=== PATIENT | female | born 1950 | race Caucasian/White ===

== ENCOUNTER → 2017-09-16 | Outpatient (CLI) | payer OTHER ==
[~2017-09-16] MED LIST: ASPIRIN81 M1 PO; TRAMADOL HCL50 MG PO; VOLTAREN50 M1 PO; [UNRECOGNIZED DRUG - REMARK]; [UNRECOGNIZED DRUG - REMARK]
== END | disposition home or self-care (01) ==
LOC: MAMMO 07:40
DX: Z12.31 Encounter for screening mammogram for malignant neoplasm of breast (principal)

== ENCOUNTER → 2017-10-20 | Outpatient (CLI) | payer MEDICARE ==
[2017-10-20 08:35] LABS: CREATININE 1.07 mg/dL (0.55-1.02)
== END | disposition home or self-care (01) ==
LOC: LAB 07:43
PROVIDERS: Surgery
DX: K43.9 Ventral hernia without obstruction or gangrene (principal); R10.9 Unspecified abdominal pain

== ENCOUNTER → 2017-10-22 | Outpatient (CLI) | payer MEDICARE | END | disposition home or self-care (01) | LOC: CT 01:54 | DX: K43.9 Ventral hernia without obstruction or gangrene (principal); K57.30 Diverticulosis of large intestine without perforation or abscess without bleeding; Z90.49 Acquired absence of other specified parts of digestive tract ==

== ENCOUNTER → 2017-10-29 | Outpatient (CLI) | payer MEDICARE | END | disposition home or self-care (01) | LOC: CT 08:29 | DX: K76.0 Fatty (change of) liver, not elsewhere classified (principal); R91.1 Solitary pulmonary nodule ==

== ENCOUNTER → 2017-11-12 | Outpatient (CLI) | payer MEDICARE ==
[~2017-11-12] MED LIST changes: +CLARITIN10 MG PO; +D3-20002000 UNIT PO; +HYDROCHLOROTH12.5 M3 PO; +SYNTHROID,LEV125 MCG PO
[2017-11-12 11:34] LABS: BILIRUBIN NEGATIVE (NEGATIVE); BLOOD NEGATIVE (NEGATIVE); CLARITY SL CLOUDY (CLEAR); COLOR YELLOW (YELLOW); GLUCOSE 1+ (NEGATIVE); KETONE NEGATIVE (NEGATIVE); LEUKO ESTERASE TRACE (NEGATIVE); NITRITE NEGATIVE (NEGATIVE); UROBILINOGEN 0.2 E.U./dl (0.2-1.0)
[2017-11-12 11:37] LABS: BASO # 0.1 10*3/uL (0.0-0.1); BASO % 1.4 % (0.0-1.0); EOS # 0.2 10*3/uL (0.0-0.4); EOS % 2.5 % (1.0-4.0); HEMATOCRIT 48.6 % (37.0-47.0); HEMOGLOBIN 15.8 g/dl (12.0-16.0); LYMPH # 1.2 10*3/uL (1.3-4.4); LYMPH % 15.6 % (27.0-41.0); MEAN CELL VOLUME 90.2 fl (81.0-99.0); MEAN CORPUSCULAR HGB 29.3 pg (27.0-31.0); MEAN CORPUSCULAR HGB CONC 32.5 g/dl (33.0-37.0); MEAN PLATELET VOLUME 10.4 fl (9.6-12.3); MONO # 0.5 10*3/uL (0.1-1.0); MONO % 7.1 % (3.0-9.0); NEUT # 5.6 10*3/uL (2.3-7.9); NEUT % 72.9 % (47.0-73.0); PLATELET COUNT AUTOMATED 199 10*3/uL (130-400); RED BLOOD COUNT 5.39 10*6/uL (4.10-5.10); WHITE BLOOD COUNT 7.6 10*3/uL (4.8-10.8)
[2017-11-12 11:43] LABS: BACTERIA TRACE; EPITHELIAL CELLS 25-30
[2017-11-12 12:00] LABS: BUN 16 mg/dl (7-24); CHLORIDE 103 mmol/L (98-107); CREATININE 1.01 mg/dL (0.55-1.02); POTASSIUM 3.8 mmol/L (3.5-5.1); SODIUM 143 mmol/L (136-145)
[2017-11-12 12:03] LABS: ACT PARTIAL THROMBO TIME 21.4 SECONDS (20.8-31.5)
== END | disposition home or self-care (01) ==
LOC: LAB 09:23
PROVIDERS: Surgery
DX: K43.9 Ventral hernia without obstruction or gangrene (principal); Z79.01 Long term (current) use of anticoagulants

== ENCOUNTER → 2017-11-18 | Day surgery (SDC) | payer MEDICARE ==
[~2017-11-18] VITALS: Ht 162.5 cm; Wt 94.8 kg
[~2017-11-18] MED LIST changes: +NORCO 5-325 TA1 EACH PO
--- NOTE | ~2017-11-18 | O ---
[place], [place] OPERATIVE NOTE NAME: BEST DIAZ UNIT #: [id number] ROOM: DOCTOR: JUSTYN LIZARRAGA MD BIRTHDATE: [birth year] DOS: 11/18/2017 PREOPERATIVE DIAGNOSIS: Ventral hernia. POSTOPERATIVE DIAGNOSIS: Ventral hernia. PROCEDURE: Repair of ventral hernia with mesh (medium Ventralex ST). SURGEON: Justyn Lizarraga MD PROFESSIONAL FIGHTER: CHRISTINE. ANESTHESIA: General with endotracheal intubation. INDICATIONS: This is a 67-year-old lady who comes in today for a symptomatic ventral/epigastric hernia. The procedure and its complications were explained to the patient in detail preoperatively. Complications that were discussed included but were not limited to bleeding, infection, hematoma/seroma/abscess formation, prolonged postoperative pain, damage to lying vital structures and recurrence. She agreed to proceed. DESCRIPTION OF PROCEDURE: After identifying the patient, the patient was brought to the operating suite and laid in the supine position. After induction of general anesthesia, timeout procedure was called and the parts were then painted and draped in the usual sterile fashion. An incision was made right above the area of the hernia. The skin and the subcutaneous tissue were incised. The hernial sac was identified and the defect was identified as well. The defect was approximately 1-1.5 cm in diameter. The hernial sac itself was reduced back into the abdominal cavity and at this point, a medium size Ventralex mesh was brought in and placed under the fascia above the peritoneum. The mesh was then fixed to the fascia with the help of Prolene sutures. The defect itself was then approximated with the help of interrupted #1 Prolene. Thereafter, the subcutaneous tissue was irrigated and approximated with the help of 3-0 Vicryl in a running fashion and the skin edges approximated with the help of 4-0 Vicryl in a subcuticular running fashion after the edges were infiltrated with 1% plain lidocaine. Dressing was placed. An abdominal binder was placed as well. The patient was extubated uneventfully and brought back to the recovery room in stable fashion. There were no complications. Dr. Justyn Lizarraga, the attending surgeon, was present throughout the operating case. [place], [place] OPERATIVE NOTE NAME: BEST DIAZ UNIT #: [id number] ROOM: DOCTOR: JUSTYN LIZARRAGA MD BIRTHDATE: [birth year] Justyn Lizarraga MD CM:OPRECORD:OPERATIVE NOTE [id number] JUSTYN LIZARRAGA MD 11/18/17 1000 interface
[2017-11-18 07:13] VITALS: BP 170/88
[2017-11-18 08:13] VITALS: BP 147/83
[2017-11-18 08:28] VITALS: BP 146/74
[2017-11-18 08:43] VITALS: BP 128/72
[2017-11-18 08:58] VITALS: BP 119/67
[2017-11-18 09:13] VITALS: BP 130/67
== END | disposition home or self-care (01) ==
LOC: SDC 11-12 10:15
DX: K43.9 Ventral hernia without obstruction or gangrene (principal); Z87.891 Personal history of nicotine dependence; I10 Essential (primary) hypertension; E78.5 Hyperlipidemia, unspecified; Z98.51 Tubal ligation status; Z90.49 Acquired absence of other specified parts of digestive tract; E03.9 Hypothyroidism, unspecified; M19.90 Unspecified osteoarthritis, unspecified site; Z88.8 Allergy status to other drugs, medicaments and biological substances

== ENCOUNTER 2018-01-11 16:34 | Emergency (ER) | payer MEDICARE ==
[~2018-01-11] VITALS: Ht 162.5 cm; Wt 92.1 kg
== END 2018-01-11 18:45 | disposition home or self-care (01) ==
LOC: ED 16:34
DX: S86.912A Strain of unspecified muscle(s) and tendon(s) at lower leg level, left leg, initial encounter (principal); S60.222A Contusion of left hand, initial encounter; Z88.2 Allergy status to sulfonamides; Z88.6 Allergy status to analgesic agent; Z88.8 Allergy status to other drugs, medicaments and biological substances; Z79.899 Other long term (current) drug therapy; Z79.82 Long term (current) use of aspirin; W18.09XA Striking against other object with subsequent fall, initial encounter; Y93.89 Activity, other specified; Y92.89 Other specified places as the place of occurrence of the external cause; Y99.8 Other external cause status

== ENCOUNTER → 2018-01-18 | Outpatient (CLI) | payer MEDICARE ==
[~2018-01-18] MED LIST changes: +OMEPRAZOLE D/R20 MG PO; +PRAVASTATIN SOD80 MG PO
[2018-01-18 08:45] LABS: BASO # 0.1 10*3/uL (0.0-0.1); BASO % 1.1 % (0.0-1.0); EOS # 0.2 10*3/uL (0.0-0.4); EOS % 2.7 % (1.0-4.0); HEMATOCRIT 47.1 % (37.0-47.0); HEMOGLOBIN 15.3 g/dl (12.0-16.0); LYMPH # 1.2 10*3/uL (1.3-4.4); LYMPH % 17.3 % (27.0-41.0); MEAN CORPUSCULAR HGB 28.9 pg (27.0-31.0); MEAN CORPUSCULAR HGB CONC 32.5 g/dl (33.0-37.0); MEAN PLATELET VOLUME 10.6 fl (9.6-12.3); MONO # 0.5 10*3/uL (0.1-1.0); MONO % 7.5 % (3.0-9.0); NEUT % 71.1 % (47.0-73.0); PLATELET COUNT AUTOMATED 210 10*3/uL (130-400); RED BLOOD COUNT 5.29 10*6/uL (4.10-5.10); RED CELL DISTRI WIDTH 13.2 % (0-14.5); WHITE BLOOD COUNT 7.1 10*3/uL (4.8-10.8)
[2018-01-18 09:13] LABS: ALBUMIN 3.9 gm/dl (3.1-4.5); CREATININE 1.11 mg/dL (0.55-1.02); POTASSIUM 3.9 mmol/L (3.5-5.1); TOTAL PROTEIN 7.1 gm/dL (6.4-8.2)
== END | disposition home or self-care (01) ==
LOC: LAB 08:18
PROVIDERS: Internal Medicine
DX: S80.12XA Contusion of left lower leg, initial encounter (principal); X58.XXXA Exposure to other specified factors, initial encounter; Y93.89 Activity, other specified; Y92.89 Other specified places as the place of occurrence of the external cause; Y99.8 Other external cause status

== ENCOUNTER 2018-01-24 12:10 | Emergency (ER) | payer MEDICARE ==
[~2018-01-24] VITALS: Ht 162.5 cm; Wt 93.0 kg
[~2018-01-24 12:10] MED LIST changes: -OMEPRAZOLE D/R20 MG PO; -PRAVASTATIN SOD80 MG PO
[2018-01-24] MEDS ORDERED: PRAVASTATIN SOD80 MG PO (12:21)
[2018-01-24] MEDS ORDERED: OMEPRAZOLE D/R20 MG PO (12:21)
== END 2018-01-24 15:14 | disposition home or self-care (01) ==
LOC: ED 12:10
DX: S93.402A Sprain of unspecified ligament of left ankle, initial encounter (principal); S60.222A Contusion of left hand, initial encounter; S80.02XA Contusion of left knee, initial encounter; S90.32XA Contusion of left foot, initial encounter; Z88.0 Allergy status to penicillin; Z88.2 Allergy status to sulfonamides; Z88.6 Allergy status to analgesic agent; Z88.1 Allergy status to other antibiotic agents; Z88.8 Allergy status to other drugs, medicaments and biological substances; Z79.899 Other long term (current) drug therapy; Z90.49 Acquired absence of other specified parts of digestive tract; W19.XXXA Unspecified fall, initial encounter; Y93.89 Activity, other specified; Y92.89 Other specified places as the place of occurrence of the external cause; Y99.8 Other external cause status

== ENCOUNTER → 2018-09-21 | Outpatient (CLI) | payer OTHER, MEDICARE ==
[~2018-09-21] MED LIST changes: +MEDROL DOSEPAK4 MG PO; +MUCINEX DM ER1 EACH PO; +OMEPRAZOLE D/R20 MG PO; +PRAVASTATIN SOD80 MG PO; +PREDNISONE50 MG PO; +ZITHROMAX250 MG PO
== END | disposition home or self-care (01) ==
LOC: MAMMO 07:23
DX: Z12.31 Encounter for screening mammogram for malignant neoplasm of breast (principal)

== ENCOUNTER 2018-11-12 08:39 | Emergency (ER) | payer MEDICARE ==
[~2018-11-12] VITALS: Ht 162.5 cm; Wt 87.5 kg
--- NOTE | ~2018-11-12 | EKG ---
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
[~2018-11-12 08:39] MED LIST changes: -MEDROL DOSEPAK4 MG PO; -MUCINEX DM ER1 EACH PO; -PREDNISONE50 MG PO; -ZITHROMAX250 MG PO
[2018-11-12 09:20] LABS: BASO # 0.1 10*3/uL (0.0-0.1); BASO % 1.2 % (0.0-1.0); EOS # 0.2 10*3/uL (0.0-0.4); EOS % 3.3 % (1.0-4.0); HEMOGLOBIN 15.1 g/dl (12.0-16.0); LYMPH # 0.6 10*3/uL (1.3-4.4); LYMPH % 10.9 % (27.0-41.0); MEAN CELL VOLUME 89.8 fl (81.0-99.0); MEAN CORPUSCULAR HGB 29.5 pg (27.0-31.0); MEAN CORPUSCULAR HGB CONC 32.8 g/dl (33.0-37.0); MEAN PLATELET VOLUME 10.3 fl (9.6-12.3); MONO # 0.6 10*3/uL (0.1-1.0); MONO % 9.7 % (3.0-9.0); NEUT # 4.2 10*3/uL (2.3-7.9); NEUT % 74.5 % (47.0-73.0); PLATELET COUNT AUTOMATED 183 10*3/uL (130-400); RED BLOOD COUNT 5.12 10*6/uL (4.10-5.10); RED CELL DISTRI WIDTH 13.3 % (0-14.5); WHITE BLOOD COUNT 5.7 10*3/uL (4.8-10.8)
[2018-11-12 09:32] LABS: ACT PARTIAL THROMBO TIME 25.3 SECONDS (20.0-32.1); INTERNATIONAL NORM RATIO 0.9 (2.0-3.5)
[2018-11-12 09:38] LABS: ALBUMIN 3.5 gm/dl (3.1-4.5); ALKALINE PHOSPHATASE 87 U/L (45-117); BUN 15 mg/dl (7-24); CHLORIDE 105 mmol/L (98-107); CREATININE 0.99 mg/dL (0.55-1.02); LIPASE 69 U/L (73-393); POTASSIUM 3.6 mmol/L (3.5-5.1); SGOT/AST 21 IU/L (3-35); SGPT/ALT 31 U/L (12-78); SODIUM 141 mmol/L (136-145); TOTAL PROTEIN 6.7 gm/dL (6.4-8.2)
[2018-11-12 09:43] LABS: TROPONIN I < 0.015 ng/ml (<0.045)
[2018-11-12] MEDS ORDERED: ZITHROMAX250 MG PO (10:30)
[2018-11-12] MEDS ORDERED: MUCINEX DM ER1 EACH PO (10:30)
[2018-11-12] MEDS ORDERED: PREDNISONE50 MG PO (10:30)
== END 2018-11-12 10:41 | disposition home or self-care (01) ==
LOC: ED 08:39
PROVIDERS: Emergency Medicine
DX: J20.9 Acute bronchitis, unspecified (principal); R79.1 Abnormal coagulation profile; Z79.899 Other long term (current) drug therapy; Z79.82 Long term (current) use of aspirin; Z88.0 Allergy status to penicillin; Z88.2 Allergy status to sulfonamides; Z88.1 Allergy status to other antibiotic agents; Z88.6 Allergy status to analgesic agent; Z88.8 Allergy status to other drugs, medicaments and biological substances

== ENCOUNTER 2018-12-08 12:04 | Emergency (ER) | payer MEDICARE ==
[~2018-12-08] VITALS: Ht 162.5 cm; Wt 90.7 kg
--- NOTE | ~2018-12-08 | EKG ---
[place], [place] ELECTROCARDIOGRAM REPORT NAME: BEST DIAZ UNIT #: [id number] ROOM: DOCTOR: EPIPHANY DRAFT REPORT BIRTHDATE: [birth year] [facility] Test Date: 2018-12-08 Test Time: 12:43:33 Pat Name: BEST DIAZ Department: Room: Gender: F Digester: : 1950 Requested By: DAVID AL Order Number: [id number] Reading MD: Stephen Hallman MD Measurements Intervals [place] Rate: 104 P: 10 SD: 161 QRS: -34 QRSD: 84 T: 34 QT: 346 QTc: 455 Interpretive Statements Sinus tachycardia Left axis deviation Consider anterior infarct Compared to ECG 11/12/2018 09:25:48 Myocardial infarct finding now present Sinus rhythm no longer present Electronically Signed On 12-12-2018 8:06:51 PDT by Stephen Hallman MD CM:EKGRPT:ELECTROCARDIOGRAM REPORT [id number] DAVID TURCIOS DRAFT REPORT DAVID AL M.D.
[~2018-12-08 12:04] MED LIST changes: +MUCINEX DM ER1 EACH PO; +PREDNISONE50 MG PO; +ZITHROMAX250 MG PO
[2018-12-08 12:47] LABS: BASO % 0.6 % (0.0-1.0); EOS # 0.1 10*3/uL (0.0-0.4); EOS % 2.6 % (1.0-4.0); HEMATOCRIT 45.9 % (37.0-47.0); HEMOGLOBIN 15.3 g/dl (12.0-16.0); LYMPH # 0.7 10*3/uL (1.3-4.4); LYMPH % 14.1 % (27.0-41.0); MEAN CELL VOLUME 89.5 fl (81.0-99.0); MEAN CORPUSCULAR HGB 29.8 pg (27.0-31.0); MEAN CORPUSCULAR HGB CONC 33.3 g/dl (33.0-37.0); MEAN PLATELET VOLUME 10.2 fl (9.6-12.3); MONO # 0.5 10*3/uL (0.1-1.0); MONO % 10.3 % (3.0-9.0); NEUT # 3.6 10*3/uL (2.3-7.9); NEUT % 71.8 % (47.0-73.0); PLATELET COUNT AUTOMATED 165 10*3/uL (130-400); RED BLOOD COUNT 5.13 10*6/uL (4.10-5.10); RED CELL DISTRI WIDTH 13.7 % (0-14.5)
[2018-12-08 12:56] LABS: CREATININE 1.11 mg/dL (0.55-1.02); POTASSIUM 3.6 mmol/L (3.5-5.1)
[2018-12-08] MEDS ORDERED: MEDROL DOSEPAK4 MG PO (16:54)
== END 2018-12-08 16:58 | disposition home or self-care (01) ==
LOC: ED 12:04
PROVIDERS: Emergency Medicine
DX: J44.9 Chronic obstructive pulmonary disease, unspecified (principal); E11.9 Type 2 diabetes mellitus without complications; Z88.0 Allergy status to penicillin; Z88.2 Allergy status to sulfonamides; Z88.1 Allergy status to other antibiotic agents; Z88.6 Allergy status to analgesic agent; Z88.8 Allergy status to other drugs, medicaments and biological substances; Z79.899 Other long term (current) drug therapy; Z79.82 Long term (current) use of aspirin; Z87.891 Personal history of nicotine dependence

== ENCOUNTER 2018-12-14 00:33 | Emergency (ER) | payer MEDICARE ==
[~2018-12-14] VITALS: Ht 162.5 cm; Wt 90.7 kg
--- NOTE | ~2018-12-14 | EKG ---
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
[~2018-12-14 00:33] MED LIST changes: +MEDROL DOSEPAK4 MG PO
[2018-12-14 01:04] LABS: HEMATOCRIT 51.9 % (37.0-47.0); HEMOGLOBIN 17.3 g/dl (12.0-16.0); MEAN CELL VOLUME 87.8 fl (81.0-99.0); MEAN CORPUSCULAR HGB 29.3 pg (27.0-31.0); MEAN CORPUSCULAR HGB CONC 33.3 g/dl (33.0-37.0); MEAN PLATELET VOLUME 9.8 fl (9.6-12.3); PLATELET COUNT AUTOMATED 321 10*3/uL (130-400); RED BLOOD COUNT 5.91 10*6/uL (4.10-5.10); RED CELL DISTRI WIDTH 13.4 % (0-14.5); WHITE BLOOD COUNT 13.7 10*3/uL (4.8-10.8)
[2018-12-14 01:23] LABS: ALBUMIN 3.9 gm/dl (3.1-4.5); ALKALINE PHOSPHATASE 122 U/L (45-117); BUN 33 mg/dl (7-24); CHLORIDE 101 mmol/L (98-107); CREATININE 1.32 mg/dL (0.55-1.02); LIPASE 96 U/L (73-393); POTASSIUM 3.4 mmol/L (3.5-5.1); SGOT/AST 20 IU/L (3-35); SGPT/ALT 34 U/L (12-78); SODIUM 137 mmol/L (136-145); TOTAL PROTEIN 7.5 gm/dL (6.4-8.2)
[2018-12-14 01:29] LABS: PLATELET SUFFICIENCY NORMAL (NORMAL); TOTAL CELLS COUNTED 100 #CELLS
[2018-12-14 01:31] LABS: TROPONIN I < 0.015 ng/ml (<0.045)
[2018-12-14 01:41] LABS: BILIRUBIN NEGATIVE (NEGATIVE); BLOOD NEGATIVE (NEGATIVE); CLARITY SL CLOUDY (CLEAR); COLOR YELLOW (YELLOW); GLUCOSE 3+ (NEGATIVE); KETONE TRACE (NEGATIVE); LEUKO ESTERASE TRACE (NEGATIVE); NITRITE NEGATIVE (NEGATIVE); PH 5.5 (5.0-9.0); SPECIFIC GRAVITY 1.025 (1.005-1.030); UROBILINOGEN 0.2 E.U./dl (0.2-1.0)
[2018-12-14 01:51] LABS: BACTERIA TRACE; WBC 16-20 wbc/hpf (0-5)
[2018-12-14 01:52] LABS: EPITHELIAL CELLS 45-50
== END 2018-12-14 02:50 | disposition home or self-care (01) ==
LOC: ED 00:33
PROVIDERS: Student in an Organized Health Care Education/Training Program
DX: R19.7 Diarrhea, unspecified (principal); R53.1 Weakness; R10.9 Unspecified abdominal pain; R11.0 Nausea; R61 Generalized hyperhidrosis; J44.9 Chronic obstructive pulmonary disease, unspecified; Z87.891 Personal history of nicotine dependence; Z88.0 Allergy status to penicillin; Z88.2 Allergy status to sulfonamides; Z88.1 Allergy status to other antibiotic agents; Z88.6 Allergy status to analgesic agent; Z88.8 Allergy status to other drugs, medicaments and biological substances; Z79.82 Long term (current) use of aspirin; Z79.899 Other long term (current) drug therapy; Z90.49 Acquired absence of other specified parts of digestive tract

== ENCOUNTER → 2019-01-04 | Outpatient (CLI) | payer MEDICARE ==
[~2019-01-04] MED LIST changes: +NAPROSYN500 MG PO
--- NOTE | ~2019-01-04 | PF ---
[place], [place] PULMONARY FUNCTION TEST NAME: BEST DIAZ UNIT #: [id number] ROOM: DOCTOR: BERTHA CONTE MD,JESSICA BIRTHDATE: [birth year] DOS: 01/05/2019 ORDERED BY: Jena Johnson DO. HISTORY: The patient reported 68-year-old female, height of 64 inches, weight of 196 pounds, BMI 33.3. Testing done for assessment of symptoms of bronchial asthma. The patient reported symptoms of nonproductive cough with shortness of breath with exertion. The patient noted tobacco use, 2 packs of cigarettes per day for 12 years. The tobacco cessation reported at 38 years ago. SPIROMETRY: The FVC was recorded 3.09 liters at 104% predicted value. The FEV1 of 2.46 liters, 106% predicted value. Ratio of FEV1/FVC recorded as 79%. A 12% partial improvement was noted after the postbronchodilator FEV1. The lung volumes, thoracic gas volume recorded 115%, residual volume of 124%, total lung capacity of 110%. The patient's airway resistance and passive conductance were normal. The lung diffusion recorded normal. A resistance, passive conductance was normal; however, partial improvement noted post-bronchodilator. FINAL IMPRESSION: The test consistent with evidence of mild reversible obstructive lung disease. JESSICA STONE MD CM:PFREPORT:PULMONARY FUNCTION TEST [id number] JESSICA CONTE MD
== END | disposition home or self-care (01) ==
LOC: CP 09:52
DX: J45.20 Mild intermittent asthma, uncomplicated (principal)

== ENCOUNTER → 2019-02-27 | Outpatient (CLI) | payer MEDICARE ==
[2019-02-27 08:38] LABS: CREATININE 0.97 mg/dL (0.55-1.02)
== END | disposition home or self-care (01) ==
LOC: LAB 08:04 → CT 09:00
PROVIDERS: Surgery
DX: K43.9 Ventral hernia without obstruction or gangrene (principal); Z90.49 Acquired absence of other specified parts of digestive tract; J44.9 Chronic obstructive pulmonary disease, unspecified; K76.0 Fatty (change of) liver, not elsewhere classified

== ENCOUNTER 2019-02-28 08:46 | Emergency (ER) | payer MEDICARE ==
[~2019-02-28] VITALS: Ht 162.5 cm; Wt 91.2 kg
[~2019-02-28 08:46] MED LIST changes: -NAPROSYN500 MG PO
[2019-02-28] MEDS ORDERED: NAPROSYN500 MG PO (10:19)
== END 2019-02-28 10:24 | disposition home or self-care (01) ==
LOC: ED 08:46
DX: I80.8 Phlebitis and thrombophlebitis of other sites (principal); Z79.899 Other long term (current) drug therapy; Z79.82 Long term (current) use of aspirin; Z88.0 Allergy status to penicillin; Z88.1 Allergy status to other antibiotic agents; Z88.2 Allergy status to sulfonamides; Z88.6 Allergy status to analgesic agent; Z88.8 Allergy status to other drugs, medicaments and biological substances

== ENCOUNTER 2019-05-29 13:08 | Emergency (ER) | payer MEDICARE ==
[~2019-05-29] VITALS: Ht 162.5 cm; Wt 92.5 kg
[~2019-05-29 13:08] MED LIST changes: +NAPROSYN500 MG PO
[2019-05-29 14:25] LABS: BASO # 0.1 10*3/uL (0.0-0.1); BASO % 1.2 % (0.0-1.0); EOS # 0.2 10*3/uL (0.0-0.4); EOS % 3.1 % (1.0-4.0); HEMATOCRIT 46.6 % (37.0-47.0); LYMPH # 1.2 10*3/uL (1.3-4.4); LYMPH % 18.1 % (27.0-41.0); MEAN CELL VOLUME 87.1 fl (81.0-99.0); MEAN CORPUSCULAR HGB CONC 32.2 g/dl (33.0-37.0); MEAN PLATELET VOLUME 10.7 fl (9.6-12.3); MONO # 0.5 10*3/uL (0.1-1.0); MONO % 7.2 % (3.0-9.0); NEUT # 4.7 10*3/uL (2.3-7.9); NEUT % 70.1 % (47.0-73.0); PLATELET COUNT AUTOMATED 246 10*3/uL (130-400); RED BLOOD COUNT 5.35 10*6/uL (4.10-5.10); RED CELL DISTRI WIDTH 13.2 % (0-14.5); WHITE BLOOD COUNT 6.7 10*3/uL (4.8-10.8)
[2019-05-29 14:39] LABS: ALBUMIN 3.3 gm/dl (3.1-4.5); CREATININE 1.2 mg/dL (0.55-1.02); POTASSIUM 3.6 mmol/L (3.5-5.1); TOTAL PROTEIN 6.9 gm/dL (6.4-8.2)
[2019-05-29] MEDS ORDERED: NAPROSYN500 MG PO (15:06)
== END 2019-05-29 15:38 | disposition home or self-care (01) ==
LOC: ED 13:08
PROVIDERS: Nurse Practitioner Family
DX: M79.605 Pain in left leg (principal); R60.0 Localized edema; I73.9 Peripheral vascular disease, unspecified; I10 Essential (primary) hypertension; G43.909 Migraine, unspecified, not intractable, without status migrainosus; E07.9 Disorder of thyroid, unspecified; Z88.0 Allergy status to penicillin; Z88.2 Allergy status to sulfonamides; Z88.8 Allergy status to other drugs, medicaments and biological substances; Z88.6 Allergy status to analgesic agent; Z79.899 Other long term (current) drug therapy; Z79.82 Long term (current) use of aspirin; Z90.49 Acquired absence of other specified parts of digestive tract

== ENCOUNTER 2019-09-07 13:48 | Observation (INO) | payer MEDICARE ==
[~2019-09-07] VITALS: Ht 162.5 cm; Wt 89.5 kg
[~2019-09-07 13:48] MED LIST changes: -D3-20002000 UNIT PO; +D3-200050 MCG PO; -OMEPRAZOLE D/R20 MG PO; +OMEPRAZOLE40 MG PO
[2019-09-07 14:03] VITALS: BP 120/74
[2019-09-07 14:42] LABS: BASO # 0.1 10*3/uL (0.0-0.1); BASO % 1.3 % (0.0-1.0); EOS # 0.2 10*3/uL (0.0-0.4); EOS % 2.6 % (1.0-4.0); HEMATOCRIT 48.2 % (37.0-47.0); HEMOGLOBIN 15.8 g/dl (12.0-16.0); LYMPH # 1.5 10*3/uL (1.3-4.4); LYMPH % 18.9 % (27.0-41.0); MEAN CELL VOLUME 86.5 fl (81.0-99.0); MEAN CORPUSCULAR HGB 28.4 pg (27.0-31.0); MEAN CORPUSCULAR HGB CONC 32.8 g/dl (33.0-37.0); MEAN PLATELET VOLUME 10.7 fl (9.6-12.3); MONO # 0.6 10*3/uL (0.1-1.0); MONO % 7.9 % (3.0-9.0); NEUT # 5.5 10*3/uL (2.3-7.9); NEUT % 68.9 % (47.0-73.0); PLATELET COUNT AUTOMATED 237 10*3/uL (130-400); RED BLOOD COUNT 5.57 10*6/uL (4.10-5.10); RED CELL DISTRI WIDTH 13.4 % (0-14.5)
[2019-09-07 14:57] LABS: ALBUMIN 3.6 gm/dl (3.1-4.5); ALKALINE PHOSPHATASE 107 U/L (45-117); BUN 14 mg/dl (7-24); CHLORIDE 102 mmol/L (98-107); CREATININE 1.09 mg/dL (0.55-1.02); POTASSIUM 3.7 mmol/L (3.5-5.1); SGOT/AST 21 IU/L (3-35); SGPT/ALT 21 U/L (12-78); SODIUM 137 mmol/L (136-145); TOTAL PROTEIN 7.3 gm/dL (6.4-8.2)
[2019-09-07 14:58] LABS: TROPONIN I < 0.015 ng/ml (<0.045)
[2019-09-07 15:20] VITALS: BP 122/52
[2019-09-07 16:00] VITALS: BP 153/75
[2019-09-07 16:15] VITALS: BP 122/52
[2019-09-07] MEDS ORDERED: NORVASC2.5 MG PO (16:23)
[2019-09-07] MEDS ORDERED: ALOGLIPTIN12.5 MG PO (16:24)
[2019-09-07 20:00] VITALS: BP 134/63
[2019-09-08] VITALS: BP 139/63
[2019-09-08 06:07] LABS: BUN 15 mg/dl (7-24); CHLORIDE 103 mmol/L (98-107); CHOLESTEROL 165 mg/dL (<200); CREATININE 0.94 mg/dL (0.55-1.02); FREE T4 1.22 ng/dl (0.76-1.46); HDL CHOLESTEROL 37 mg/dl (40-60); LDL CHOLESTEROL 84 mg/dL (9-159); PHOSPHOROUS 3.7 mg/dL (2.5-4.9); POTASSIUM 3.5 mmol/L (3.5-5.1); SODIUM 140 mmol/L (136-145); TRIGLYCERIDES 220 mg/dl (<150); VLDL CHOLESTEROL 44 mg/dL (6-40)
[2019-09-08 06:11] LABS: BASO # 0.1 10*3/uL (0.0-0.1); BASO % 1.1 % (0.0-1.0); EOS # 0.2 10*3/uL (0.0-0.4); EOS % 2.6 % (1.0-4.0); HEMATOCRIT 46.6 % (37.0-47.0); LYMPH # 1.3 10*3/uL (1.3-4.4); LYMPH % 20.3 % (27.0-41.0); MEAN CELL VOLUME 86.3 fl (81.0-99.0); MEAN CORPUSCULAR HGB 27.8 pg (27.0-31.0); MEAN CORPUSCULAR HGB CONC 32.2 g/dl (33.0-37.0); MEAN PLATELET VOLUME 10.6 fl (9.6-12.3); MONO # 0.5 10*3/uL (0.1-1.0); MONO % 7.8 % (3.0-9.0); NEUT # 4.5 10*3/uL (2.3-7.9); NEUT % 67.9 % (47.0-73.0); PLATELET COUNT AUTOMATED 220 10*3/uL (130-400); RED CELL DISTRI WIDTH 13.4 % (0-14.5); WHITE BLOOD COUNT 6.6 10*3/uL (4.8-10.8)
[2019-09-08 06:23] LABS: ACT PARTIAL THROMBO TIME 25.1 SECONDS (20.0-32.1)
[2019-09-08 08:00] VITALS: BP 142/68
[2019-09-08 08:09] LABS: VITAMIN D, 25-HYDROXY 52.5 ng/mL (30-100)
[2019-09-08 12:00] VITALS: BP 152/87
== END 2019-09-08 13:51 | disposition home or self-care (01) ==
LOC: ED 13:48 → EDHOLD 15:14 → 4E 16:23
PROVIDERS: Emergency Medicine; Internal Medicine; ADMIT Internal Medicine
DX: R07.89 Other chest pain (principal); R00.0 Tachycardia, unspecified; J44.9 Chronic obstructive pulmonary disease, unspecified; I12.9 Hypertensive chronic kidney disease with stage 1 through stage 4 chronic kidney disease, or unspecified chronic kidney disease; E11.22 Type 2 diabetes mellitus with diabetic chronic kidney disease; N18.3 Chronic kidney disease, stage 3 (moderate); E11.65 Type 2 diabetes mellitus with hyperglycemia; E78.5 Hyperlipidemia, unspecified; E55.9 Vitamin D deficiency, unspecified; E03.9 Hypothyroidism, unspecified; J30.2 Other seasonal allergic rhinitis; K21.9 Gastro-esophageal reflux disease without esophagitis

== ENCOUNTER 2019-09-27 11:42 | Emergency (ER) | payer MEDICARE ==
[~2019-09-27] VITALS: Ht 162.5 cm; Wt 88.9 kg
[~2019-09-27 11:42] MED LIST changes: +ALOGLIPTIN12.5 MG PO; +NORVASC2.5 MG PO
[2019-09-27] MEDS ORDERED: DIFLUCAN150 MG PO (15:19)
[2019-09-27] MEDS ORDERED: KEFLEX500 M1 PO (15:19)
== END 2019-09-27 15:45 | disposition home or self-care (01) ==
LOC: ED 11:42
DX: I80.9 Phlebitis and thrombophlebitis of unspecified site (principal); I10 Essential (primary) hypertension; G43.909 Migraine, unspecified, not intractable, without status migrainosus; Z88.2 Allergy status to sulfonamides; Z88.8 Allergy status to other drugs, medicaments and biological substances; Z88.0 Allergy status to penicillin; Z79.82 Long term (current) use of aspirin; Z79.899 Other long term (current) drug therapy; Z90.49 Acquired absence of other specified parts of digestive tract; Z87.891 Personal history of nicotine dependence